=== PATIENT | female | born 1960 | race Caucasian/White ===

== ENCOUNTER 2016-10-28 10:41 | Emergency (ER) | payer OTHER ==
[~2016-10-28] VITALS: Ht 154.9 cm; Wt 83.9 kg
[2016-10-28 11:02] VITALS: BP 126/68
[2016-10-28] MEDS ORDERED: NACL 0.9% 500 ML IV ONE (11:20)
[2016-10-28] MEDS ORDERED: KETOROLAC 30 MG/ML VIAL IVP ONE (11:20)
[2016-10-28] MEDS ORDERED: ONDANSETRON 4 MG/2 ML VIAL IVP ONE (11:20)
--- NOTE | 2016-10-28 11:26 | NUR ---
Patient being taken to [place] via wheelchair per tech.
[2016-10-28 11:34] LABS: BASOPHILS % (AUTO) 0.7 % (0.0-2.0); EOSINOPHILS # (AUTO) 0.1 K/uL (0-0.4); HEMATOCRIT 43.7 % (36-48); HEMOGLOBIN 14.3 g/dL (12.0-16.0); LYMPHOCYTES # (AUTO) 1.2 K/uL (2.5-16.5); LYMPHOCYTES % (AUTO) 18.9 % (20.5-51.1); MEAN CORPUSCULAR HEMOGLOBIN 27 pg (27-31); MEAN CORPUSCULAR HGB CONC 33 g/dL (33-37); MEAN CORPUSCULAR VOLUME 84 fL (80-94); MONOCYTES # (AUTO) 0.5 K/uL (0.8-1.0); MONOCYTES % (AUTO) 8.2 % (1.7-9.3); NEUTROPHILS # (AUTO) 4.5 K/uL (1.8-7.7); NEUTROPHILS % (AUTO) 70.2 % (42.2-75.2); PLATELET COUNT (AUTO) 182 K/uL (140-450); RED BLOOD CELL COUNT(AUTO) 5.23 MIL/uL (4.20-5.40); RED CELL DISTRIBUTION WIDTH 15.5 % (11.6-13.7); WHITE BLOOD COUNT (AUTO) 6.3 K/uL (4.8-10.8)
--- NOTE | 2016-10-28 11:44 | NUR ---
Patient brought back from [facility] via wheelchair per tech.
[2016-10-28 11:51] LABS: ALBUMIN 3.4 g/dL (3.4-5.0); ANION GAP 11.6 (8-16); CALCIUM 8.8 mg/dL (8.5-10.1); CARBON DIOXIDE 27.1 mmol/L (21-32); CREATININE 0.9 mg/dL (0.6-1.3); POTASSIUM 3.7 mmol/L (3.5-5.1); TOTAL BILIRUBIN 0.5 mg/dL (0.0-1.0); TOTAL PROTEIN, SERUM 7.2 g/dL (6.4-8.2)
--- NOTE | 2016-10-28 12:16 | NUR ---
Patient ambulated to bed 06.
--- NOTE | 2016-10-28 12:20 | NUR ---
PT REFERRED TO ER FROM [facility]RG[facility] FOR EVALUAITON OF RUQ PAIN X3 DAYS. HX HYPOTHYROIDISM. PT STATES SHE VOMITTED TODAY;PAIN SCALE OF 8/10;DENIES CP/SOB/F/COUGH.AAOX4;NO ACUTE DISTRESS NOTED AT THIS TIME;HOB ELEVATED;NEEDS ATTENDED;SAFETY MEASURES DONE;ALL MONITORS IN PLACED;MD MADE AWARE OF PT'S CONDITION.
--- NOTE | 2016-10-28 13:19 | NUR ---
PT WENT TO XRAY ACCOMPANIED BY TECH.
--- NOTE | 2016-10-28 13:25 | NUR ---
Patient back from XRAY via wheelchair per tech.
--- NOTE | 2016-10-28 13:30 | NUR ---
PT AMBULATED TO THE RESTROOM; NO ACUTE DISTESS NOTED AT THIS TIME.
--- NOTE | 2016-10-28 13:46 | NUR ---
PT LYING ON BED COMFORTABLY.VERBALIZES DECREASE OF MARKO FROM 8/10 TO 3/10.
[2016-10-28] MEDS ORDERED: LORazepam 2 MG/ML VIAL IM ONE (13:55)
[2016-10-28 14:20] VITALS: BP 113/76
== END 2016-10-28 14:19 | disposition home or self-care (01) ==
LOC: MED 10:41
DX: A08.4 Viral intestinal infection, unspecified (principal)
CPT/HCPCS: 36415; 74022; 76705; 80053; 83690; 85025; 96361; 96374; 96375; 99285; J1885; J2405; J7030

== ENCOUNTER 2021-05-06 21:31 | Emergency (ER) | payer OTHER ==
[~2021-05-06] VITALS: Ht 152.4 cm; Wt 75.3 kg
[2021-05-06 21:56] VITALS: BP 139/72
--- NOTE | 2021-05-06 22:02 | NUR ---
PT SENT TO LOBBY
--- NOTE | 2021-05-06 23:58 | NUR ---
PT AMBULATED TO BED 02.
[2021-05-07] MEDS ORDERED: ONDANSETRON 4 MG/2 ML VIAL IM ONE
[2021-05-07] MEDS ORDERED: NACL 0.9% 1,000 ML IV ONE
[2021-05-07] MEDS ORDERED: MORPHINE SULFATE 4 MG/ML SYR IM ONE
--- NOTE | 2021-05-07 | NUR ---
60 YO F BIB SELF WITH C/C OF 10/10 SHARP LUQ PAIN X 05/06 12PM. PT STATES SHE HAS NAUSEA. DENIES V/D, CHILLS, FEVER, AND SOB. PT STATES SHE WENT TO HER PRIMARY AND RECEIVED AN INJ FOR PAIN, PAIN RETURNED 20MINS AFTER SHOT. PT'S IS GRASPING LUQ, TENDER TO TOUCH. BOWEL SOUNDS X4 ACTIVE. LAST BM WAS AT 3PM, STATED IT WAS NORMAL ONLY IT APPEARED VERY YELLOW. DENIES URINARY CHANGES. DENIES VAGINAL DISCHARGE. HX: THYROID, FIBROMYALGIA RX: MEDICATION FOR THYROID AND FIBROMY. DENIES ALLERG
[2021-05-07 00:24] LABS: BASOPHILS % (AUTO) 0.3 % (0.0-2.0); EOSINOPHILS % (AUTO) 0.1 % (0.0-4.0); HEMATOCRIT 44.6 % (36-48); HEMOGLOBIN 14.9 g/dL (12.0-16.0); LYMPHOCYTES # (AUTO) 0.7 K/uL (2.5-16.5); LYMPHOCYTES % (AUTO) 9.2 % (20.5-51.1); MEAN CORPUSCULAR HEMOGLOBIN 28 pg (27-31); MEAN CORPUSCULAR HGB CONC 33 g/dL (33-37); MEAN CORPUSCULAR VOLUME 84.9 fL (80-94); MONOCYTES # (AUTO) 0.1 K/uL (0.8-1.0); MONOCYTES % (AUTO) 0.8 % (1.7-9.3); NEUTROPHILS # (AUTO) 6.4 K/uL (1.8-7.7); NEUTROPHILS % (AUTO) 89.6 % (42.2-75.2); PLATELET COUNT (AUTO) 240 K/uL (140-450); RED BLOOD CELL COUNT(AUTO) 5.26 MIL/uL (4.20-5.40); RED CELL DISTRIBUTION WIDTH 16.3 % (11.6-13.7); WHITE BLOOD COUNT (AUTO) 7.1 K/uL (4.8-10.8)
[2021-05-07 00:25] LABS: APPEARANCE,URINE CLEAR (CLEAR); BILIRUBIN,URINE NEGATIVE (NEGATIVE); BLOOD, URINE NEGATIVE (NEGATIVE); COLOR,URINE YELLOW (YELLOW); LEUKOCYTE ESTERASE ,URINE TRACE (NEGATIVE); NITRITE, URINE NEGATIVE (NEGATIVE); UGLUCOSE NEGATIVE (NEGATIVE)
[2021-05-07 00:34] LABS: RBC,URINE 0-5 /HPF (0-5)
[2021-05-07 00:46] LABS: ALBUMIN 4.2 g/dL (3.4-5.0); ANION GAP 15.9 (8-16); CARBON DIOXIDE 24.7 mmol/L (21-32); CREATININE 0.8 mg/dL (0.6-1.3); POTASSIUM 4.6 mmol/L (3.5-5.1); TOTAL BILIRUBIN 0.3 mg/dL (0.0-1.0)
--- NOTE | 2021-05-07 01:00 | NUR ---
PT IS SITTING UP IN BED USING CELL PHONE. PT STATES PAIN HAS SUBSIDED COMPLETELY. ALL NEEDS MET AT THIS TIME. BED LOCKED IN LOWEST POSITION, SIDE RAILS X2.
--- NOTE | 2021-05-07 02:20 | NUR ---
PT BACK FROM RAD.
--- NOTE | 2021-05-07 03:05 | NUR ---
PT IS RESTING, OPENS EYES TO SOUND. EQUAL RISE AND FALL OF CHEST WALL. DENIES PAIN AND DISCOMFORT. VSS. PT IS IN STABLE CONDITION. UPDATED PT IN PENDING RAD REPORT. PT STATES SHE WILL GET REST. LIGHTS TURNED OFF FOR COMFORT. ALL NEEDS MET AT THIS TIME. BED LOCKED IN LOWEST POSITION, SIDE RAILS X2.
[2021-05-07] MEDS ORDERED: MAGN296S PO (03:56)
[2021-05-07 04:18] VITALS: BP 138/51
--- NOTE | 2021-05-07 04:18 | NUR ---
Patient discharged with v/s stable. Written and verbal after care instructions given and explained. Patient alert, oriented and verbalized understanding of instructions. Ambulatory with steady gait. All questions addressed prior to discharge. ID band removed. Patient advised to follow up with PMD. Rx of mag citrate given. Patient educated on indication of medication including possible reaction and side effects. Opportunity to ask questions provided and answered.
== END 2021-05-07 04:18 | disposition home or self-care (01) ==
LOC: MED 21:31
DX: K59.00 Constipation, unspecified (principal); E07.9 Disorder of thyroid, unspecified; Z98.890 Other specified postprocedural states
CPT/HCPCS: 36415; 74018; 80053; 81001; 83605; 83690; 85025; 87086; 96360; 96372; 99284; J2270; J2405; J7030; 96361; 96374; 96375